=== PATIENT | female | born 1930 | race Caucasian/White ===

== ENCOUNTER 2016-12-05 14:49 | Emergency (ER) | payer OTHER ==
[~2016-12-05] VITALS: Ht 165.1 cm; Wt 69.0 kg
[~2016-12-05 14:49] MED LIST: ADULT LOW DOSE81 M1 PO; ALTACE5 MG PO; ARTIFICIAL TEAR15 M6 BOTH EYES; ASPIRIN81 M1 PO; Benadryl PO; CALTRATE 6001 TABLE1 PO; CALTRATE600 MG PO; CEFADROXIL500 MG PO; CENTRUM SILVER1 EACH PO; CIPROFLOXACIN500 M1 PO; COUMADIN,JANTOVE1 MG PO; DICLOFENAC SODI75 MG PO; DITROPAN XL10 MG PO; ERGOCALCIF50000 UNIT PO; HYDROCHLOROTH12.5 M1 PO; HYDROCHLOROTH12.5 M3 PO; KEFLEX500 MG PO; LIPITOR40 MG PO; METOPROLOL SUC100 MG PO; METOPROLOL TAR100 MG PO; METRONIDAZOLE500 MG PO; NORTRIPTYLINE H10 MG PO; OXYBUTYNIN CHLO10 MG PO; PAIN & FEVER325 MG PO; PERCOCET 5/31 TABLET PO; PRESERVISIO1 CAPSULE PO; PRESERVISION S1 EACH PO; PRILOSEC OTC20 M1 PO; PRILOSEC OTC20 MG PO; PRILOSEC20.6 MG PO; PROAIR HFA8.5 GM IH; PROVENTIL,200 INHALA IH; Pepcid PO; PreserVision Softgel PO; Proventil,Ventolin H IH; RAMIPRIL5 MG PO; ST. JOSEPH ASPI81 MG PO; TOPROL XL200 MG PO; TRAMADOL HCL50 MG PO; TYLENOL EXTRA500 MG PO; TYLENOL/CODE1 TABLET PO; Tylenol/Codeine #3 PO; VIIBRYD20 MG PO; VITAMIN D50000 UNI4 PO; WARFARIN SODIUM4 MG PO; WARFARIN SODIUM6 MG PO; [UNRECOGNIZED DRUG - OTHER] PO; predniSONE PO
[2016-12-05] MEDS ORDERED: PREDNISONE50 MG PO (17:41)
[2016-12-05 17:43] VITALS: BP 150/82
[2016-12-05] MEDS ORDERED: DOXYCYCLINE HY100 MG PO (17:47)
== END 2016-12-05 18:05 | disposition home or self-care (01) ==
LOC: EME 14:49
DX: H05.223 Edema of bilateral orbit (principal); R06.00 Dyspnea, unspecified; T36.1X5A Adverse effect of cephalosporins and other beta-lactam antibiotics, initial encounter; Z98.890 Other specified postprocedural states; Z85.820 Personal history of malignant melanoma of skin; I10 Essential (primary) hypertension; E78.5 Hyperlipidemia, unspecified; Z88.1 Allergy status to other antibiotic agents; Z79.82 Long term (current) use of aspirin
CPT/HCPCS: 99281; 99284; J1200; J7512

== ENCOUNTER 2017-06-07 11:10 | Inpatient (IN) | payer OTHER ==
[~2017-06-07] VITALS: Ht 165.1 cm; Wt 67.6 kg
[~2017-06-07 11:10] MED LIST changes: +DOXYCYCLINE HY100 MG PO; +PREDNISONE50 MG PO
[2017-06-07 12:08] LABS: EOSINOPHIL (%) 0 % (0-5); HEMATOCRIT 24.7 % (36.0-46.0); IMMATURE GRANULOCYTE (%) 0.6 % (0.0-0.7); IMMATURE GRANULOCYTE COUNT 0.1 K/uL; INSTRUMENT ABS NEUTROPHIL CT 6.1 K/uL; LYMPHOCYTE COUNT 1.1 K/uL (1.0-2.8); MCH 28.6 PG (29.0-34.0); MCHC 34.8 G/DL (30.0-36.0); MEAN PLAT.VOLUME 11.8 uM^3 (9.5-12.4); MONOCYTE (%) 21.2 % (3-12); NEUTROPHIL (%) 66.1 % (45-76); NEUTROPHIL COUNT 6.1 K/uL (1.8-6.4); RBC DIS.WIDTH-CV 14.9 % (11.8-14.6); RBC DIS.WIDTH-SD 44.4 % (39-53); WHITE BLOOD COUNT 9.3 K/uL (4.1-10.2)
[2017-06-07 12:09] LABS: MCV 82.1 FL (83-99); PLATELET COUNT 201 K/uL (156-360); RED BLOOD COUNT 3.01 M/uL (3.80-5.20)
[2017-06-07 12:17] LABS: CHLORIDE 92 mEq/L (99-109); POTASSIUM 3.7 mEq/L (3.7-5.4); SODIUM 128 mEq/L (136-147)
[2017-06-07 12:18] LABS: ADD MIUA? YES; BILIRUBIN NEGATIVE; BLOOD NEGATIVE; COLOR YELLOW ((YELLOW)); GLUCOSE (STRIP) NEGATIVE; KETONES 5; LEUKOCYTES MODERATE; NITRITE NEGATIVE; PROTEIN (STRIP) NEGATIVE; SPECIFIC GRAVITY 1.005 (1.000-1.030); UROBILINOGEN 0.2 MG/DL (0.2-1.0)
[2017-06-07 12:19] LABS: GLUCOSE 146 mg/dL (70-99); PROTHROMBIN TIME 11.3 SEC (10.2-12.9)
[2017-06-07 12:20] LABS: ANION GAP 10 MEQ/L (2-14)
[2017-06-07 12:23] LABS: GFR ESTIMATE (CALCULATED) 56 mL/min/
[2017-06-07 12:24] LABS: UREA NITROGEN (BUN) 15 mg/dL (9-23)
[2017-06-07 12:24] LABS: BACTERIA RARE /HPF; CALCIUM OXALATE CRYSTALS 2+ /HPF; EPITHELIAL CELLS RARE /HPF; MUCUS TRACE /LPF; RED BLOOD CELLS 0-5 /HPF (0-5); UCUL ADDED? YES
[2017-06-07] MEDS ORDERED: TOPROL XL100 MG PO (15:32)
[2017-06-07] MEDS ORDERED: ACETAMINOPHEN-1 EAC1 PO (15:41)
[2017-06-07] MEDS ORDERED: ONCE DAILY1 EACH PO (15:43)
[2017-06-07 18:52] VITALS: BP 166/79
[2017-06-07 19:57] VITALS: BP 126/60
[2017-06-08 00:01] VITALS: BP 92/51
[2017-06-08 03:40] VITALS: BP 119/63
[2017-06-08 07:09] LABS: HEMATOCRIT 22.8 % (36.0-46.0); MCV 85.4 FL (83-99)
[2017-06-08 07:40] VITALS: BP 102/52
[2017-06-08 15:43] VITALS: BP 120/70
[2017-06-08 18:03] LABS: HEMATOCRIT 24.8 % (36.0-46.0); MCV 85.8 FL (83-99)
[2017-06-08 19:37] VITALS: BP 126/74
[2017-06-08 23:37] VITALS: BP 162/69
[2017-06-09 04:44] VITALS: BP 125/59
[2017-06-09 07:40] LABS: ANION GAP 12 MEQ/L (2-14); CHLORIDE 97 MEQ/L (99-109); GFR ESTIMATE (CALCULATED) > 59 mL/min/; POTASSIUM 4.1 MEQ/L (3.7-5.4); SAMPLE HEMOLYSIS CHECK 0; SAMPLE ICTERIC CHECK 1; SAMPLE LIPEMIA CHECK 0; SODIUM 133 MEQ/L (136-147); UREA NITROGEN (BUN) 13 mg/dL (9-23)
[2017-06-09 07:42] VITALS: BP 119/61
[2017-06-09 07:45] LABS: GLUCOSE 109 mg/dL (70-99)
[2017-06-09 09:39] LABS: HEMATOCRIT 25.9 % (36.0-46.0); MCV 87.2 FL (83-99)
[2017-06-09 11:32] VITALS: BP 97/52
[2017-06-09 15:54] VITALS: BP 119/63
[2017-06-09 18:18] LABS: HEMATOCRIT 26.7 % (36.0-46.0); MCV 87.5 FL (83-99)
[2017-06-09 19:18] VITALS: BP 120/58
[2017-06-09 23:15] VITALS: BP 122/68
[2017-06-10 02:48] VITALS: BP 131/63
[2017-06-10 06:07] LABS: EOSINOPHIL (%) 0.4 % (0-5); HEMATOCRIT 22.3 % (36.0-46.0); IMMATURE GRANULOCYTE (%) 1.1 % (0.0-0.7); IMMATURE GRANULOCYTE COUNT 0.1 K/uL; INSTRUMENT ABS NEUTROPHIL CT 3.8 K/uL; LYMPHOCYTE COUNT 1.8 K/uL (1.0-2.8); MCH 29.2 PG (29.0-34.0); MCHC 33.6 G/DL (30.0-36.0); MCV 86.8 FL (83-99); MONOCYTE (%) 17.5 % (3-12); MONOCYTE COUNT 1.2 K/uL (0-0.8); NEUTROPHIL (%) 54.6 % (45-76); NEUTROPHIL COUNT 3.8 K/uL (1.8-6.4); PLATELET COUNT 195 K/uL (156-360); RBC DIS.WIDTH-CV 16.2 % (11.8-14.6); RBC DIS.WIDTH-SD 50.3 % (39-53); RED BLOOD COUNT 2.57 M/uL (3.80-5.20)
[2017-06-10 06:31] LABS: ALKALINE PHOSPHATASE 93 IU/L (3-129); ANION GAP 8 MEQ/L (2-14); CHLORIDE 102 MEQ/L (99-109); GFR ESTIMATE (CALCULATED) > 59 mL/min/; GLUCOSE 95 mg/dL (70-99); POTASSIUM 4.4 MEQ/L (3.7-5.4); SAMPLE HEMOLYSIS CHECK 0; SAMPLE ICTERIC CHECK 1; SAMPLE LIPEMIA CHECK 0; SODIUM 134 MEQ/L (136-147); TOTAL BILIRUBIN 3.5 MG/DL (0.0-1.0); UREA NITROGEN (BUN) 15 mg/dL (9-23)
[2017-06-10 07:44] VITALS: BP 140/65
[2017-06-10 11:34] VITALS: BP 138/74
[2017-06-10 16:12] VITALS: BP 128/65
[2017-06-10 18:08] LABS: HEMATOCRIT 27.4 % (36.0-46.0); MCV 87.8 FL (83-99)
[2017-06-10 19:45] VITALS: BP 101/54
[2017-06-10 23:18] VITALS: BP 124/67
[2017-06-11 04:35] VITALS: BP 123/57
[2017-06-11 07:48] VITALS: BP 118/59
[2017-06-11 12:33] VITALS: BP 123/69
[2017-06-11 17:18] VITALS: BP 184/85
[2017-06-11 18:14] VITALS: BP 148/64
[2017-06-11 19:33] VITALS: BP 103/51
[2017-06-12 00:06] VITALS: BP 121/62
[2017-06-12 08:12] VITALS: BP 120/57
[2017-06-12 12:00] VITALS: BP 126/56
[2017-06-12 15:35] VITALS: BP 109/64
[2017-06-12] MEDS ORDERED: CEFTIN500 MG PO (15:36)
[2017-06-12] MEDS ORDERED: ACETAMINOPHEN-1 EAC1 PO (15:38)
== END 2017-06-12 21:10 | DRG 605 ==
LOC: EME 11:10 → EDOF 15:00 → 3EAST 15:00 → ENRESERV 15:31 → 3EAST 18:01
PROVIDERS: Emergency Medicine; Internal Medicine
DX: S30.0XXA Contusion of lower back and pelvis, initial encounter (principal); D62 Acute posthemorrhagic anemia; E22.2 Syndrome of inappropriate secretion of antidiuretic hormone; R41.0 Disorientation, unspecified; R06.02 Shortness of breath; I48.2 Chronic atrial fibrillation; E78.5 Hyperlipidemia, unspecified; D69.6 Thrombocytopenia, unspecified; R30.0 Dysuria; N30.00 Acute cystitis without hematuria; M25.551 Pain in right hip; R17 Unspecified jaundice; Z88.2 Allergy status to sulfonamides; Z85.820 Personal history of malignant melanoma of skin; Z98.890 Other specified postprocedural states; I10 Essential (primary) hypertension
CPT/HCPCS: 71010; 72192; 80048; 80053; 81003; 83880; 85014; 85018; 85025; 85610; 87077; 87086; 87186; 93005; 93971; 99281; 99285; J1940; J7030

== ENCOUNTER 2017-11-26 13:05 | Emergency (ER) | payer OTHER ==
[~2017-11-26] VITALS: Ht 165.1 cm; Wt 58.0 kg
[~2017-11-26 13:05] MED LIST changes: +ACETAMINOPHEN-1 EAC1 PO; +CEFTIN500 MG PO; +ONCE DAILY1 EACH PO; +TOPROL XL100 MG PO
[2017-11-26 14:34] LABS: BASOPHIL (%) 0.3 % (0-1); EOSINOPHIL (%) 0.3 % (0-5); HEMATOCRIT 33.6 % (36.0-46.0); IMMATURE GRANULOCYTE (%) 0.3 % (0.0-0.7); LYMPHOCYTE (%) 26.7 % (15-42); LYMPHOCYTE COUNT 0.8 K/uL (1.0-2.8); MCH 28.1 PG (29.0-34.0); MCHC 32.7 G/DL (30.0-36.0); MCV 85.9 FL (83-99); MONOCYTE (%) 20.6 % (3-12); MONOCYTE COUNT 0.7 K/uL (0-0.8); NEUTROPHIL (%) 51.8 % (45-76); NEUTROPHIL COUNT 1.6 K/uL (1.8-6.4); PLATELET COUNT 121 K/uL (156-360); RBC DIS.WIDTH-CV 16.3 % (11.8-14.6); RBC DIS.WIDTH-SD 51.2 % (39-53); RED BLOOD COUNT 3.91 M/uL (3.80-5.20); WHITE BLOOD COUNT 3.2 K/uL (4.1-10.2)
[2017-11-26 14:42] LABS: ALBUMIN 3.2 g/dL (3.2-4.8); CHLORIDE 105 mEq/L (99-109); POTASSIUM 2.8 mEq/L (3.7-5.4); SODIUM 144 mEq/L (136-147)
[2017-11-26 14:45] LABS: GLUCOSE 88 mg/dL (70-99); TOTAL PROTEIN 6.2 g/dL (6.4-8.3)
[2017-11-26 14:47] LABS: TOTAL BILIRUBIN 1.9 mg/dL (0.0-1.0)
[2017-11-26 14:48] LABS: ALKALINE PHOSPHATASE 142 IU/L (3-129)
[2017-11-26 14:49] LABS: CREATININE 0.7 mg/dL (0.6-1.3); GFR ESTIMATE (CALCULATED) > 59 mL/min/
[2017-11-26 14:50] LABS: APPEARANCE CLEAR ((CLEAR)); BILIRUBIN NEGATIVE; BLOOD NEGATIVE; COLOR YELLOW ((YELLOW)); GLUCOSE (STRIP) NEGATIVE; KETONES NEGATIVE; LEUKOCYTES NEGATIVE; NITRITE NEGATIVE; PROTEIN (STRIP) 100; SPECIFIC GRAVITY 1.014 (1.000-1.030); UROBILINOGEN 0.2 MG/DL (0.2-1.0)
[2017-11-26 14:50] LABS: AST (GOT) 16 IU/L (2-34); DIRECT BILIRUBIN 0.8 mg/dL (0.0-0.3); UREA NITROGEN (BUN) 6 mg/dL (9-23)
[2017-11-26 14:51] LABS: ALT (GPT) 9 IU/L (3-49)
[2017-11-26 14:52] LABS: LIPASE 10 U/L (1.0-51.0)
[2017-11-26 14:57] LABS: TROP-I INTERPRETATION NEGATIVE; TROPONIN-I 0.01 ng/mL (0.0-0.30)
[2017-11-26 15:02] LABS: BACTERIA NONE SEEN /HPF; EPITHELIAL CELLS RARE /HPF; HYALINE CASTS 0-5 /LPF; MUCUS TRACE /LPF; RED BLOOD CELLS 0-5 /HPF (0-5); UCUL ADDED? NO; WHITE BLOOD CELLS 0-5 /HPF (0-5)
[2017-11-26 18:45] VITALS: BP 174/86
== END 2017-11-26 18:30 | disposition home or self-care (01) ==
LOC: EME 13:05
PROVIDERS: Emergency Medicine
DX: R25.1 Tremor, unspecified (principal); E86.0 Dehydration; F03.90 Unspecified dementia, unspecified severity, without behavioral disturbance, psychotic disturbance, mood disturbance, and anxiety; I10 Essential (primary) hypertension; E78.5 Hyperlipidemia, unspecified; K21.9 Gastro-esophageal reflux disease without esophagitis; F41.9 Anxiety disorder, unspecified; Z85.820 Personal history of malignant melanoma of skin; Z87.440 Personal history of urinary (tract) infections; Z79.82 Long term (current) use of aspirin; Z88.2 Allergy status to sulfonamides
CPT/HCPCS: 70450; 71045; 74176; 80048; 80076; 81003; 83605; 83690; 84484; 85025; 87040; 87077; 87086; 87186; 99281; 99285; J7030

== ENCOUNTER 2017-12-11 20:50 | Observation (INO) | payer OTHER ==
[~2017-12-11] VITALS: Ht 165.1 cm; Wt 53.2 kg
[2017-12-11 21:11] LABS: BASOPHIL (%) 0.1 % (0-1); EOSINOPHIL (%) 0.1 % (0-5); HEMATOCRIT 40.1 % (36.0-46.0); IMMATURE GRANULOCYTE (%) 0.6 % (0.0-0.7); LYMPHOCYTE (%) 13.6 % (15-42); MCH 28.7 PG (29.0-34.0); MCHC 34.2 G/DL (30.0-36.0); MCV 84.1 FL (83-99); MONOCYTE (%) 17.9 % (3-12); MONOCYTE COUNT 1.3 K/uL (0-0.8); NEUTROPHIL (%) 67.7 % (45-76); NEUTROPHIL COUNT 4.9 K/uL (1.8-6.4); RBC DIS.WIDTH-CV 15.2 % (11.8-14.6); RBC DIS.WIDTH-SD 46.3 % (39-53); WHITE BLOOD COUNT 7.2 K/uL (4.1-10.2)
[2017-12-11 21:12] LABS: HEMOGLOBIN 13.7 G/DL (11.9-15.5); PLATELET COUNT 208 K/uL (156-360); RED BLOOD COUNT 4.77 M/uL (3.80-5.20)
[2017-12-11 21:16] LABS: INTER. NORMALIZED RATIO 1.1
[2017-12-11 21:18] LABS: AMYLASE 23 IU/L (1-118); CHLORIDE 96 mEq/L (99-109); POTASSIUM 2.9 mEq/L (3.7-5.4); SODIUM 142 mEq/L (136-147)
[2017-12-11 21:18] LABS: PTT 32.2 SEC (25-37)
[2017-12-11 21:20] LABS: GLUCOSE 200 mg/dL (70-99)
[2017-12-11 21:23] LABS: SERUM ETHYL ALCOHOL < 10 mg/dL
[2017-12-11 21:24] LABS: CREATININE 0.7 mg/dL (0.6-1.3); GFR ESTIMATE (CALCULATED) > 59 mL/min/
[2017-12-11 21:25] LABS: UREA NITROGEN (BUN) 5 mg/dL (9-23)
[2017-12-11 21:27] LABS: LIPASE 671 U/L (1.0-51.0)
[2017-12-11 21:33] LABS: TROP-I INTERPRETATION NEGATIVE; TROPONIN-I 0.02 ng/mL (0.0-0.30)
[2017-12-11 21:38] LABS: APPEARANCE CLEAR ((CLEAR)); BILIRUBIN NEGATIVE; BLOOD NEGATIVE; COLOR STRAW ((YELLOW)); GLUCOSE (STRIP) NEGATIVE; KETONES 20; LEUKOCYTES NEGATIVE; NITRITE NEGATIVE; PROTEIN (STRIP) 30; SPECIFIC GRAVITY 1.005 (1.000-1.030); UCUL ADDED? NO; UROBILINOGEN 0.2 MG/DL (0.2-1.0)
[2017-12-11 21:51] LABS: AMPHETAMINE NEGATIVE (500 ng/mL); BARBITURATES NEGATIVE (200 ng/mL); BENZODIAZEPINES NEGATIVE (150 ng/mL); BUPRENORPHINE NEGATIVE (10 ng/mL); COCAINE NEGATIVE (150 ng/mL); METHADONE NEGATIVE (200 ng/mL); METHAMPHETAMINE NEGATIVE (500 ng/mL); OPIATES (MORPHINE) NEGATIVE (100 ng/mL); OXYCODONE NEGATIVE (100 ng/mL); PHENCYCLIDINE NEGATIVE (25 ng/mL); PROPOXYPHENE NEGATIVE (300 ng/mL); THC CANNABINOIDS NEGATIVE (50 ng/mL); TRICYCLIC ANTIDEPRESSANTS NEGATIVE (300 ng/mL)
[2017-12-11] MEDS ORDERED: LOPRESSOR100 M1 PO (22:57)
[2017-12-11] MEDS ORDERED: AMLODIPINE BESY10 MG PO (22:59)
[2017-12-11] MEDS ORDERED: DONEPEZIL HCL5 MG PO (22:59)
[2017-12-11] MEDS ORDERED: HYDROCHLOROTHIA25 MG PO (22:59)
[2017-12-11] MEDS ORDERED: PAIN RELIEF EX500 MG PO (23:03)
[2017-12-12 07:21] LABS: ALBUMIN 3.2 G/DL (3.2-4.8); ALKALINE PHOSPHATASE 107 IU/L (3-129); ALT (GPT) 11 IU/L (3-49); AST (GOT) 23 IU/L (2-34); CHLORIDE 98 MEQ/L (99-109); CREATININE 0.6 MG/DL (0.6-1.3); GFR ESTIMATE (CALCULATED) > 59 mL/min/; GLUCOSE 121 mg/dL (70-99); POTASSIUM 3.2 MEQ/L (3.7-5.4); SODIUM 141 MEQ/L (136-147); TOTAL BILIRUBIN 1.4 MG/DL (0.0-1.0); TOTAL PROTEIN 6.1 G/DL (6.4-8.3); UREA NITROGEN (BUN) 5 mg/dL (9-23)
[2017-12-12 16:10] VITALS: BP 162/84
[2017-12-12 19:09] VITALS: BP 137/54
[2017-12-12 19:53] LABS: HDL CHOLESTEROL 45 MG/DL (Desirable>=50); LDL CHOLESTEROL 36 mg/dL (Desirable<100); NON-HDL CHOLESTEROL 51 mg/dL (Desirable<160); TOTAL CHOLESTEROL 96 mg/dL (Desirable<200); TRIGLYCERIDES 77 MG/DL (Normal: <150)
[2017-12-12 23:59] VITALS: BP 147/86
[2017-12-13 03:32] VITALS: BP 133/70
[2017-12-13 06:28] LABS: ALKALINE PHOSPHATASE 99 IU/L (3-129); ALT (GPT) 9 IU/L (3-49); AST (GOT) 15 IU/L (2-34); CHLORIDE 107 MEQ/L (99-109); CREATININE 0.5 MG/DL (0.6-1.3); GFR ESTIMATE (CALCULATED) > 59 mL/min/; GLUCOSE 308 mg/dL (70-99); LIPASE 11 U/L (1.0-51.0); POTASSIUM 3.8 MEQ/L (3.7-5.4); SODIUM 144 MEQ/L (136-147); TOTAL BILIRUBIN 1.3 MG/DL (0.0-1.0); TOTAL PROTEIN 5.4 G/DL (6.4-8.3); UREA NITROGEN (BUN) 5 mg/dL (9-23)
[2017-12-13 06:32] LABS: HDL CHOLESTEROL 43 MG/DL (Desirable>=50); LDL CHOLESTEROL 36 mg/dL (Desirable<100); NON-HDL CHOLESTEROL 51 mg/dL (Desirable<160); TOTAL CHOLESTEROL 94 mg/dL (Desirable<200); TRIGLYCERIDES 74 MG/DL (Normal: <150)
[2017-12-13 07:48] VITALS: BP 155/72
[2017-12-13 10:01] LABS: HEMOGLOBIN A1c (GLYCOHEMOGLOB) 4.8 % (Below 5.7)
[2017-12-13 11:41] VITALS: BP 147/70
[2017-12-13 15:49] VITALS: BP 148/74
[2017-12-13 20:25] VITALS: BP 149/81
[2017-12-13 23:58] VITALS: BP 128/60
[2017-12-14 03:46] VITALS: BP 153/82
[2017-12-14 07:29] VITALS: BP 147/73
[2017-12-14 12:06] VITALS: BP 116/67
[2017-12-14 16:41] VITALS: BP 138/76
[2017-12-14 19:53] VITALS: BP 168/93
[2017-12-14 23:48] VITALS: BP 138/82
[2017-12-15 03:28] VITALS: BP 159/85
[2017-12-15 06:52] LABS: ALKALINE PHOSPHATASE 93 IU/L (3-129); ALT (GPT) 12 IU/L (3-49); AST (GOT) 18 IU/L (2-34); CHLORIDE 103 MEQ/L (99-109); CREATININE 0.5 MG/DL (0.6-1.3); GFR ESTIMATE (CALCULATED) > 59 mL/min/; POTASSIUM 3.4 MEQ/L (3.7-5.4); SODIUM 141 MEQ/L (136-147); TOTAL BILIRUBIN 1.2 MG/DL (0.0-1.0); TOTAL PROTEIN 5.5 G/DL (6.4-8.3); UREA NITROGEN (BUN) 7 mg/dL (9-23)
[2017-12-15 06:57] LABS: GLUCOSE 110 mg/dL (70-99)
[2017-12-15 07:18] VITALS: BP 147/70
[2017-12-15 11:48] VITALS: BP 141/96
[2017-12-15 16:14] VITALS: BP 118/60
[2017-12-15 20:05] VITALS: BP 136/81
[2017-12-16 01:19] VITALS: BP 131/85
[2017-12-16 06:37] LABS: ALBUMIN 2.8 G/DL (3.2-4.8); ALKALINE PHOSPHATASE 91 IU/L (3-129); ALT (GPT) 12 IU/L (3-49); AST (GOT) 17 IU/L (2-34); CHLORIDE 107 MEQ/L (99-109); CREATININE 0.6 MG/DL (0.6-1.3); GFR ESTIMATE (CALCULATED) > 59 mL/min/; GLUCOSE 89 mg/dL (70-99); POTASSIUM 4.1 MEQ/L (3.7-5.4); SODIUM 142 MEQ/L (136-147); TOTAL PROTEIN 5.4 G/DL (6.4-8.3); UREA NITROGEN (BUN) 6 mg/dL (9-23)
[2017-12-16 07:30] VITALS: BP 136/90
[2017-12-16 11:07] VITALS: BP 128/92
== END 2017-12-16 14:22 | disposition home health service (06) ==
LOC: EME → EDBD 20:50 → 5SOUTH 22:51 → EDOF 22:51 → 5SOUTH 22:51 → ENRESERV 23:00 → 5SOUTH 12-12 15:32 → ENPENDDIS 12-16 09:50 → 5SOUTH 12-16 14:22
PROVIDERS: Emergency Medicine; Family Medicine; Internal Medicine
DX: I48.2 Chronic atrial fibrillation (principal); I10 Essential (primary) hypertension; E87.6 Hypokalemia; W18.30XA Fall on same level, unspecified, initial encounter; R41.0 Disorientation, unspecified; E78.5 Hyperlipidemia, unspecified; D69.6 Thrombocytopenia, unspecified; D64.9 Anemia, unspecified; E21.0 Primary hyperparathyroidism; M19.90 Unspecified osteoarthritis, unspecified site; I73.9 Peripheral vascular disease, unspecified; Z90.49 Acquired absence of other specified parts of digestive tract; Z98.890 Other specified postprocedural states; Z82.49 Family history of ischemic heart disease and other diseases of the circulatory system; Z79.82 Long term (current) use of aspirin; Z66 Do not resuscitate
CPT/HCPCS: 70450; 70496; 70498; 71045; 80048; 80053; 80061; 81003; 82150; 82948; 83036; 83690; 84484; 85025; 85027; 85610; 85730; 86850; 86900; 86901; 92610 GN; 93005; 94760; 97530 GP; 99281; 99285; G0378; G0480; J1650; J2060; J3480; J3489; J7050

== ENCOUNTER 2017-12-20 11:37 | Inpatient (IN) | payer OTHER ==
[~2017-12-20] VITALS: Ht 160 cm; Wt 59.6 kg
[~2017-12-20 11:37] MED LIST changes: +AMLODIPINE BESY10 MG PO; +DONEPEZIL HCL5 MG PO; +HYDROCHLOROTHIA25 MG PO; +LOPRESSOR100 M1 PO; +PAIN RELIEF EX500 MG PO
[2017-12-20 12:18] LABS: HEMATOCRIT 32.9 % (36.0-46.0); MCH 28.5 PG (29.0-34.0); MCHC 33.7 G/DL (30.0-36.0); MCV 84.6 FL (83-99); RBC DIS.WIDTH-CV 16.4 % (11.8-14.6); RBC DIS.WIDTH-SD 49.8 % (39-53); RED BLOOD COUNT 3.89 M/uL (3.80-5.20); WHITE BLOOD COUNT 8.6 K/uL (4.1-10.2)
[2017-12-20 12:25] LABS: ALBUMIN 3.5 g/dL (3.2-4.8)
[2017-12-20 12:26] LABS: CHLORIDE 99 mEq/L (99-109); POTASSIUM 3.3 mEq/L (3.7-5.4); SODIUM 138 mEq/L (136-147)
[2017-12-20 12:28] LABS: GLUCOSE 134 mg/dL (70-99); TOTAL PROTEIN 6.7 g/dL (6.4-8.3)
[2017-12-20 12:30] LABS: TOTAL BILIRUBIN 1.6 mg/dL (0.0-1.0)
[2017-12-20 12:31] LABS: ALKALINE PHOSPHATASE 139 IU/L (3-129)
[2017-12-20 12:32] LABS: CREATININE 0.8 mg/dL (0.6-1.3); GFR ESTIMATE (CALCULATED) > 59 mL/min/
[2017-12-20 12:33] LABS: AST (GOT) 20 IU/L (2-34); UREA NITROGEN (BUN) 12 mg/dL (9-23)
[2017-12-20 12:35] LABS: ALT (GPT) 16 IU/L (3-49)
[2017-12-20 12:38] LABS: TROP-I INTERPRETATION NEGATIVE; TROPONIN-I 0.01 ng/mL (0.0-0.30)
[2017-12-20 12:41] LABS: MAGNESIUM 1.1 mg/dL (1.3-2.7)
[2017-12-20 12:56] LABS: BILIRUBIN NEGATIVE; BLOOD NEGATIVE; COLOR YELLOW ((YELLOW)); GLUCOSE (STRIP) NEGATIVE; KETONES NEGATIVE; LEUKOCYTES LARGE; NITRITE POSITIVE; PROTEIN (STRIP) 30; UROBILINOGEN 0.2 MG/DL (0.2-1.0)
[2017-12-20 12:58] LABS: APPEARANCE HAZY ((CLEAR))
[2017-12-20 13:22] LABS: BASOPHIL (%) 0.1 % (0-1); EOSINOPHIL (%) 0.1 % (0-5); IMMATURE GRANULOCYTE (%) 0.9 % (0.0-0.7); LYMPHOCYTE (%) 3.2 % (15-42); LYMPHOCYTE COUNT 0.3 K/uL (1.0-2.8); MONOCYTE (%) 18.8 % (3-12); MONOCYTE COUNT 1.6 K/uL (0-0.8); NEUTROPHIL (%) 76.9 % (45-76); NEUTROPHIL COUNT 6.6 K/uL (1.8-6.4)
[2017-12-20 13:23] LABS: EPITHELIAL CELLS 1+ /HPF; MUCUS NONE SEEN /LPF
[2017-12-20 13:24] LABS: PLAT.SUFFICIENCY DECREASED
[2017-12-20 13:24] LABS: BACTERIA 4+ /HPF; RED BLOOD CELLS NONE SEEN /HPF (0-5); UCUL ADDED? YES; WHITE BLOOD CELLS 20-30 /HPF (0-5)
[2017-12-20 13:28] LABS: HEMOGLOBIN 11.1 G/DL (11.9-15.5); PLATELET COUNT 95 K/uL (156-360)
[2017-12-20] MEDS ORDERED: TYLENOL EXTRA500 MG PO ×2 (15:19)
[2017-12-20] MEDS ORDERED: HYDROCHLOROTHIA25 MG PO (15:22)
[2017-12-20 17:58] VITALS: BP 105/57
[2017-12-20 18:06] VITALS: BP 105/57
[2017-12-20 19:30] VITALS: BP 107/56
[2017-12-20 23:53] VITALS: BP 147/61
[2017-12-21 03:11] VITALS: BP 136/84
[2017-12-21 05:55] LABS: CHLORIDE 100 MEQ/L (99-109); CREATININE 0.7 MG/DL (0.6-1.3); GFR ESTIMATE (CALCULATED) > 59 mL/min/; GLUCOSE 123 mg/dL (70-99); MAGNESIUM 1.5 mg/dl (1.3-2.7); POTASSIUM 3.8 MEQ/L (3.7-5.4); SODIUM 135 MEQ/L (136-147); UREA NITROGEN (BUN) 16 mg/dL (9-23)
[2017-12-21 07:09] VITALS: BP 146/65
[2017-12-21 12:00] VITALS: BP 102/58
[2017-12-21 15:30] VITALS: BP 124/62
[2017-12-21 18:55] VITALS: BP 159/76
[2017-12-21 23:15] VITALS: BP 110/68
[2017-12-22] VITALS (7 sets, daily range): BP systolic 130–164; BP diastolic 70–80
[2017-12-23 03:30] VITALS: BP 132/60
[2017-12-23 06:45] LABS: BASOPHIL (%) 0.5 % (0-1); EOSINOPHIL (%) 0.8 % (0-5); HEMATOCRIT 29.8 % (36.0-46.0); HEMOGLOBIN 9.9 G/DL (11.9-15.5); IMMATURE GRANULOCYTE (%) 0.3 % (0.0-0.7); LYMPHOCYTE (%) 45.2 % (15-42); LYMPHOCYTE COUNT 1.7 K/uL (1.0-2.8); MCH 28.6 PG (29.0-34.0); MCHC 33.2 G/DL (30.0-36.0); MCV 86.1 FL (83-99); MONOCYTE (%) 21.1 % (3-12); MONOCYTE COUNT 0.8 K/uL (0-0.8); NEUTROPHIL (%) 32.1 % (45-76); NEUTROPHIL COUNT 1.2 K/uL (1.8-6.4); PLATELET COUNT 128 K/uL (156-360); RBC DIS.WIDTH-CV 16.7 % (11.8-14.6); RBC DIS.WIDTH-SD 51.2 % (39-53); RED BLOOD COUNT 3.46 M/uL (3.80-5.20); WHITE BLOOD COUNT 3.7 K/uL (4.1-10.2)
[2017-12-23 06:57] LABS: ALBUMIN 2.8 G/DL (3.2-4.8); ALKALINE PHOSPHATASE 116 IU/L (3-129); ALT (GPT) 22 IU/L (3-49); AST (GOT) 30 IU/L (2-34); CHLORIDE 104 MEQ/L (99-109); CREATININE 0.6 MG/DL (0.6-1.3); GFR ESTIMATE (CALCULATED) > 59 mL/min/; GLUCOSE 98 mg/dL (70-99); POTASSIUM 3.7 MEQ/L (3.7-5.4); SODIUM 140 MEQ/L (136-147); TOTAL BILIRUBIN 0.7 MG/DL (0.0-1.0); TOTAL PROTEIN 5.7 G/DL (6.4-8.3); UREA NITROGEN (BUN) 10 mg/dL (9-23)
[2017-12-23 07:17] VITALS: BP 153/73
[2017-12-23 12:34] VITALS: BP 116/66
[2017-12-23 15:55] VITALS: BP 144/69
[2017-12-23 19:54] VITALS: BP 171/85
[2017-12-23 23:29] VITALS: BP 127/70
[2017-12-24 04:03] VITALS: BP 140/65
[2017-12-24 07:11] VITALS: BP 153/70
[2017-12-24 11:13] VITALS: BP 141/66
[2017-12-24 15:54] VITALS: BP 157/81
[2017-12-24 16:57] VITALS: BP 145/69
[2017-12-24 19:34] VITALS: BP 127/76
[2017-12-25 00:09] VITALS: BP 131/70
[2017-12-25 03:24] VITALS: BP 129/62
[2017-12-25 08:05] VITALS: BP 142/74
[2017-12-25 11:06] VITALS: BP 122/64
[2017-12-25] MEDS ORDERED: CEFTIN500 MG PO (13:52)
[2017-12-25] MEDS ORDERED: DILTIAZEM 24HR120 MG PO (13:55)
[2017-12-25] MEDS ORDERED: DOCUSATE SODIU100 MG PO (13:55)
== END 2017-12-25 15:16 | disposition home health service (06) | DRG 872 ==
LOC: EME 11:37 → 2EAST 14:35 → EDOF 14:35 → 4EAST 14:35 → ENRESERV 14:57 → 4EAST 17:43 → ENRESERV 12-21 12:37 → 2EAST 12-21 15:25
PROVIDERS: Emergency Medicine; Internal Medicine
DX: A41.51 Sepsis due to Escherichia coli [E. coli] (principal); N39.0 Urinary tract infection, site not specified; E87.6 Hypokalemia; I48.2 Chronic atrial fibrillation; D69.6 Thrombocytopenia, unspecified; R41.82 Altered mental status, unspecified; D46.9 Myelodysplastic syndrome, unspecified; G30.9 Alzheimer's disease, unspecified; F02.80 Dementia in other diseases classified elsewhere, unspecified severity, without behavioral disturbance, psychotic disturbance, mood disturbance, and anxiety; I10 Essential (primary) hypertension; E21.0 Primary hyperparathyroidism; E78.5 Hyperlipidemia, unspecified; K21.9 Gastro-esophageal reflux disease without esophagitis; M19.90 Unspecified osteoarthritis, unspecified site; R29.6 Repeated falls; Z85.820 Personal history of malignant melanoma of skin; Z91.81 History of falling; Z79.82 Long term (current) use of aspirin; Z88.2 Allergy status to sulfonamides
CPT/HCPCS: 70450; 71045; 80048; 80053; 81003; 83605; 83735; 84484; 85025; 87040; 87077; 87086; 87186; 87801; 93005; 94760; 94799; 99202; 99281; 99285; J0696; J1644; J3475; J7040